=== PATIENT | female | born 1960 | race Caucasian/White ===

== ENCOUNTER 2024-01-29 06:34 | Inpatient (IN) | payer BC, OTHER ==
[2024-01-29] VITALS (8 sets, daily range): BP systolic 92–151; BP diastolic 49–97; PULSE 70–137; RESP 12–20; TEMP 97.6–97.7; O2SAT 94–99
[~2024-01-29] VITALS: Ht 165.1 cm; Wt 78.0 kg
[~2024-01-29 06:34] MED LIST: CLON0.2T PO; UMEC1AER PO
[2024-01-29 07:32] LABS: Alanine Aminotransferase 15 U/L (7-40); Albumin 4.6 g/dL (3.2-4.8); Alkaline Phosphatase 82 U/L (46-116); Anion Gap 12 (5-15); Aspartate Aminotransferase 14 U/L (13-40); BUN/Creatinine Ratio 15.1 (10.0-20.0); Blood Urea Nitrogen 14 mg/dL (9-23); Calcium 9.8 mg/dL (8.7-10.4); Carbon Dioxide 21 mmol/L (20-31); Chloride 109 mmol/L (98-107); Glucose 139 mg/dL (74-106); Potassium 4.3 mmol/L (3.5-5.1); Sodium 142 mmol/L (136-145)
[2024-01-29 07:33] LABS: Bilirubin, Total 0.8 mg/dL (0.2-1.0); Total Protein 7.2 g/dL (5.7-8.2)
[2024-01-29 07:40] LABS: Basophils # (auto) 0.1 10 ^3/uL (0-0.2); Basophils % (auto) 0.6 % (0.0-2.0); Eosinophils # (auto) 0.1 10 ^3/uL (0-0.8); Eosinophils % (auto) 0.8 % (0.0-7.0); Hematocrit 49.9 % (36.0-46.0); Hemoglobin 16.7 g/dL (12.2-16.2); Lymphocytes # (auto) 3.5 10 ^3/uL (0.4-5.4); Lymphocytes % (auto) 31.7 % (10.0-50.0); Mean Corpuscular Hgb Conc. 33.5 g/dL (32.0-36.0); Mean Corpuscular Volume 92.4 fL (80.0-100.0); Monocytes # (auto) 0.9 10 ^3/uL (0-1.3); Monocytes % (auto) 8.2 % (0.0-12.0); Neutrophils # (auto) 6.5 10 ^3/uL (1.6-8.6); Neutrophils % (auto) 58.7 % (37.0-80.0); Nucleated Red Blood Cells % 0.1 %; Platelet Count (auto) 404 10^3/uL (140-450); Red Cell Distribution Width 13.9 % (11.8-14.3); White Blood Cell 11.1 10^3/uL (4.4-10.8)
[2024-01-29] MEDS: ONDANSETRON HCL 4 MG/2 ML VIAL IV ONE (08:11)
[2024-01-29] MEDS: SODIUM CHLORIDE 0.9% 1,000 ML IV ONE (08:36)
[2024-01-29] MEDS: METOPROLOL TARTRATE 1MG/1ML-5ML VIAL IV ONE ×2 (09:09→09:52)
[2024-01-29] MEDS ORDERED: METO-159 PO (13:29)
[2024-01-29] MEDS: METOPROLOL TARTRATE 50 MG TAB PO ONE (13:29)
[2024-01-29] MEDS ORDERED: HYOS0.1293 PO (13:29)
[2024-01-29] MEDS ORDERED: LOSA-534 PO (13:29)
[2024-01-29] MEDS ORDERED: NITROGLYCERIN 0.4 MG SL TAB SL PRN (13:30)
[2024-01-29] MEDS ORDERED: ACETAMINOPHEN 325 MG TAB PO PRN (13:30)
[2024-01-29] MEDS ORDERED: HYDROcodone-ACET 5/325MG TAB PO PRN (13:30)
[2024-01-29] MEDS ORDERED: DOCUSATE SOD 100 MG CAP PO PRN (13:30)
[2024-01-29] MEDS: ASPirin 81 mg TAB PO ONE (13:30)
[2024-01-29] MEDS ORDERED: PRAV20TA3 PO (13:31)
[2024-01-29] MEDS ORDERED: ALBU1AER4 IN (13:32)
[2024-01-29] MEDS ORDERED: ALBUTEROL SULF 2.5 MG/0.5ML(0.5%) NEB SOLN NEB PRN ×2 (13:45→17:15)
[2024-01-29] MEDS ORDERED: HYOSCYAMINE SULF 0.125 MG ODT TAB PO PRN (13:45)
[2024-01-29] MEDS: SODIUM CHLOR 0.9% PF (SALINE LOCK) 10ML VIAL/SYR IV SCH (14:00)
[2024-01-29 14:10] LABS: Urine Bacteria None Seen /hpf (None Seen)
[2024-01-29 14:26] LABS: Urine Blood Negative /uL (Negative); Urine Clarity Clear (Clear); Urine Color Light-Yellow (Yellow); Urine Protein, UAD 1+ (Negative); Urine Specific Gravity 1.013 (1.001-1.035); Urine Urobilinogen Normal (Negative); Urine WBC 3 /hpf (0 - 5); Urine pH 5.5 (5.0-9.0)
[2024-01-29 16:10] LABS: Amphetamine Screen, Urine Neg (NEGATIVE)
[2024-01-29 16:11] LABS: Benzodiazephine Screen, Urine Neg (NEGATIVE)
[2024-01-29 16:12] LABS: Barbiturate Scree,Urine Neg (NEGATIVE); Cannabinoid Screen, Urine Neg (NEGATIVE); Cocaine Screen, Urine Neg (NEGATIVE); Opiate Scree,Urine Neg (NEGATIVE)
[2024-01-29] MEDS: ADENOSINE 6 MG/2 ML INJ IV ONE ×3 (16:48→16:54)
[2024-01-29 16:55] LABS: Phencyclidine Screen, Urine Neg (NEGATIVE)
[2024-01-29] MEDS: hydrALAZINE HCL 20 MG/ML VL ONE (17:26)
[2024-01-29] MEDS: hydrALAZINE HCL 20 MG/ML VL IV ONE (17:26)
[2024-01-29] MEDS: LOSARTAN POTASSIUM 50 MG TAB PO ONE (17:37)
[2024-01-29] MEDS ORDERED: hydrALAZINE HCL 20 MG/ML VL IV PRN ×2 (17:45→19:00)
[2024-01-29] MEDS: cloNIDine HCL 0.1 MG TAB PO ONE (18:14)
[2024-01-29] MEDS: hydroCHLOROthiazide 25 MG TAB PO ONE (18:15)
[2024-01-29] MEDS: MORPHINE SULFATE INJ 2 MG/ml SYRG IV PRN (18:20)
[2024-01-29] MEDS: ONDANSETRON HCL 4 MG/2 ML VIAL IV PRN (18:20)
[2024-01-29] MEDS: LEVALBUTEROL HCL 1.25 MG/3 ML NEB NEB SCH (19:19)
[2024-01-29] MEDS: IPRATROPIUM BROM 0.5 MG/2.5ML INH SOL NEB PRN (19:19)
[2024-01-29] MEDS ORDERED: METOPROLOL TARTRATE 50 MG TAB PO SCH (22:00)
[2024-01-29] MEDS: METOPROLOL SUCCINATE XL 50 MG TAB PO SCH (22:00)
[2024-01-29] MEDS: PRAVASTATIN SODIUM 20 MG TAB PO SCH (22:36)
[2024-01-30] VITALS (14 sets, daily range): BP systolic 91–162; BP diastolic 41–78; PULSE 71–87; RESP 18–20; TEMP 97–97.9; O2SAT 92–98
[2024-01-30] MEDS ORDERED: INFLUENZA TRIVALENT 2024-2025 0.5 ML INJ IM ONE (03:00)
[2024-01-30] MEDS ORDERED: ASPI-543 PO (03:03)
[2024-01-30] MEDS ORDERED: POTA-36 PO (03:04)
[2024-01-30] MEDS ORDERED: MONT-8 PO (03:05)
[2024-01-30] MEDS ORDERED: CLON0.2T PO (03:08)
[2024-01-30] MEDS ORDERED: IBUP1TAB4 PO (03:08)
[2024-01-30] MEDS ORDERED: ALBU108A5 IN (03:09)
[2024-01-30] MEDS ORDERED: HYDR12.59 PO (03:10)
[2024-01-30 05:20] LABS: Basophils # (auto) 0 10 ^3/uL (0-0.2); Basophils % (auto) 0.5 % (0.0-2.0); Eosinophils # (auto) 0.1 10 ^3/uL (0-0.8); Eosinophils % (auto) 0.8 % (0.0-7.0); Hematocrit 41.4 % (36.0-46.0); Hemoglobin 14.1 g/dL (12.2-16.2); Lymphocytes # (auto) 2.8 10 ^3/uL (0.4-5.4); Lymphocytes % (auto) 34.6 % (10.0-50.0); Mean Corpuscular Hemoglobin 31.4 pg (28.0-32.0); Mean Corpuscular Volume 92.3 fL (80.0-100.0); Monocytes # (auto) 0.7 10 ^3/uL (0-1.3); Monocytes % (auto) 8.2 % (0.0-12.0); Neutrophils # (auto) 4.5 10 ^3/uL (1.6-8.6); Neutrophils % (auto) 55.9 % (37.0-80.0); Platelet Count (auto) 276 10^3/uL (140-450); Red Blood Cells 4.49 10^6/uL (4.0-5.20); Red Cell Distribution Width 14.4 % (11.8-14.3); White Blood Cell 8.1 10^3/uL (4.4-10.8)
[2024-01-30 05:26] LABS: Alanine Aminotransferase 13 U/L (7-40); Alkaline Phosphatase 61 U/L (46-116); Anion Gap 8 (5-15); BUN/Creatinine Ratio 20.9 (10.0-20.0); Blood Urea Nitrogen 18 mg/dL (9-23); Calcium 9.2 mg/dL (8.7-10.4); Carbon Dioxide 25 mmol/L (20-31); Chloride 107 mmol/L (98-107); Glucose 102 mg/dL (74-106); Potassium 3.8 mmol/L (3.5-5.1); Sodium 140 mmol/L (136-145)
[2024-01-30 05:27] LABS: Aspartate Aminotransferase 15 U/L (13-40); Bilirubin, Total 1.1 mg/dL (0.2-1.0); Total Protein 6.1 g/dL (5.7-8.2)
[2024-01-30] MEDS: ASPirin 81 mg TAB PO SCH (09:53)
[2024-01-30] MEDS: hydroCHLOROthiazide 25 MG TAB PO SCH (09:54)
[2024-01-30] MEDS ORDERED: cloNIDine HCL 0.1 MG TAB PO SCH (10:00)
[2024-01-30] MEDS: LOSARTAN POTASSIUM 50 MG TAB PO SCH (10:00)
[2024-01-30] MEDS: LOSARTAN POTASSIUM 50 MG TAB PO ONE ×2 (14:11→16:50)
[2024-01-30] MEDS: cloNIDine HCL 0.1 MG TAB PO ONE (18:39)
[2024-01-31] VITALS (7 sets, daily range): BP systolic 158–169; BP diastolic 71–82; PULSE 69–84; RESP 16–18; TEMP 97.4–98.9; O2SAT 94–97
[2024-01-31 07:28] LABS: Calcium 9.9 mg/dL (8.7-10.4); Chloride 106 mmol/L (98-107); Potassium 3.7 mmol/L (3.5-5.1); Sodium 141 mmol/L (136-145)
[2024-01-31 07:29] LABS: Anion Gap 9 (5-15); Carbon Dioxide 26 mmol/L (20-31)
[2024-01-31 07:34] LABS: Blood Urea Nitrogen 15 mg/dL (9-23); Glucose 105 mg/dL (74-106)
[2024-01-31] MEDS: hydroCHLOROthiazide 25 MG TAB PO SCH (09:19)
[2024-01-31] MEDS: LOSARTAN POTASSIUM 50 MG TAB PO SCH (09:20)
[2024-01-31] MEDS ORDERED: METO1TAB9 PO (15:46)
[2024-01-31] MEDS ORDERED: CLON0.1T PO (15:46)
[2024-01-31] MEDS ORDERED: HYDR25TA5 PO (15:46)
[2024-01-31] MEDS ORDERED: LOSA-535 PO (15:46)
== END 2024-01-31 17:45 | disposition home or self-care (01) | DRG 309 ==
LOC: EDBD 06:34 → ER 06:34 → TELE 13:28 → TELE-WESTW 21:36
PROVIDERS: ADMIT Nurse Practitioner Family; ATTEND Student in an Organized Health Care Education/Training Program
PROC: 5A2204Z Restoration of Cardiac Rhythm, Single (ICD-10-PCS; principal; 2024-01-29)
DX: I47.10 Supraventricular tachycardia, unspecified (principal); I20.0 Unstable angina; J44.9 Chronic obstructive pulmonary disease, unspecified; E78.5 Hyperlipidemia, unspecified; J43.8 Other emphysema; R73.03 Prediabetes; I16.0 Hypertensive urgency; I34.1 Nonrheumatic mitral (valve) prolapse; Z90.710 Acquired absence of both cervix and uterus; Z87.891 Personal history of nicotine dependence; Z82.3 Family history of stroke
CPT/HCPCS: 36415; 71045; 80048; 80053; 80307; 81001; 83036; 83835; 83880; 84443; 84484; 85025; 93005; 93306; 94640; 99291; G0378; J0153; J2405

== ENCOUNTER → 2024-04-18 | Outpatient (CLI) | payer BC, OTHER ==
[~2024-04-18] VITALS: Ht 160 cm; Wt 77.1 kg
[~2024-04-18] MED LIST changes: +ALBU1AER4 IN; +ASPI-543 PO; +CLON0.1T PO; +HYDR25TA5 PO; +HYOS0.1293 PO; +IBUP1TAB4 PO; +LOSA-535 PO; +METO1TAB9 PO; +MONT-8 PO; +POTA-36 PO; +PRAV20TA3 PO
--- NOTE | 2024-04-18 09:55 | DVHCARD ---
Cardiology Stress Test [place] Treadmill Stress Test [place] Referring MD: MD Navid Protocol: Joseph (with cardiolite) Reason for referral: Other (Abnormal ECG) Target heart Rate:@85%: 132 Percent MPHR: 156 METS: 7.0 Resting Heart rate: 72 Resting Blood Pressure: 172/80 Exercise Heart Rate: 156 Exercise Blood Pressure: 172/80 Reason for Termination of Test: Shortness of breath Baseline EKG: NSR Stress EKG: Sinus tachycardia Functional Capacity: Mod. Decreased Heart Rate Response: Adequate Blood Pressure Response: Hypertensive Clinical response: Non-ischemic Arrhythmia?: No Cardiolite Injected?: Yes ST-T Changes: Non/Minimal Probability of Inducible Ische: Perfusion result pending Comments: Post-stress test ECG: ST-segment depression to inferolateral leads Date of Service: Apr 18, 2024 Billing Provider: TYRESE MADDEN MD Cardiology Common Codes: PROCEDURE ONLY Treadmill W/Cardiolite Nuclear: [id number], INTERP, RPT [employer] Apr 18, 2024 09:55
--- NOTE | 2024-04-18 12:45 | DVHSR ---
APPROVED REPORT Exam: Nuclear Stress Test BMI: 0 Stress Test Details HR Max Heart Rate (APMHR): 156.446290 bpm Target HR (85% APMHR): 132.542477 bpm BP ECG Stress ECG Conclusion Resting images shows near homogeneous uptake of radioactive tracer throughout the myocardium without evidence of myocardial infarction. Stress images shows near homogeneous uptake of radioactive tracer throughout the myocardium without e vidence of myocardial ischemia. Well-preserved left ventricular systolic function at 60%. Impression: Negative stress test for ischemia, low risk study. NM EXAM: Myocardial Perfusion REST/STRESS Imaging Protocol: Rest Tc-99m/Stress Tc-99m 1 day Resting Data Rest SPECT myocardial perfusion imaging was performed in supine position 60 minutes following the int ravenous injection of 13.5 mCi of Tc-99m Sestamibi. Time of rest injection: 0800 Time of rest imagin Administration Route: IV Administration Site: Right AC Exercise Stress At peak stress, the patient was injected intravenously with 31.5mCi of Tc-99m Sestamibi. Time of stress injection: 0914 Time of stress imagin Administration Route: IV Administration Site: Right AC Patient continued to exercise for 5.40 minute(s). Gated Stress SPECT was performed 30 minutes after stress injection. Nuclear Conclusion ECG Findings: negative for ischemia Clinical Findings: negative for ischemia Nuclear Findings: negative for ischemia Exercise Capacity: not assessed Left Ventricular Function: normal Risk Study: low Resting images shows near homogeneous uptake of radioactive tracer throughout the myocardium without evidence of myocardial infarction. Stress images shows near homogeneous uptake of radioactive tracer throughout the myocardium without e vidence of myocardial ischemia. Well-preserved left ventricular systolic function at 60%. Impression: Negative stress test for ischemia, low risk study.
== END | disposition home or self-care (01) ==
LOC: XYW 08:13
PROVIDERS: ATTEND Internal Medicine
DX: R94.31 Abnormal electrocardiogram [ECG] [EKG] (principal)
CPT/HCPCS: 78452; 93017; A9500

== ENCOUNTER → 2024-04-18 | Outpatient (CLI) | payer BC ==
[2024-04-20 19:06] LABS: Free Testosterone(Direct) 0.8 pg/mL (0.0-4.2)
== END | disposition home or self-care (01) ==
LOC: LAB 11:15
PROVIDERS: ATTEND Internal Medicine Endocrinology, Diabetes & Metabolism
DX: C74.00 Malignant neoplasm of cortex of unspecified adrenal gland (principal)
CPT/HCPCS: 84402; 84403

== ENCOUNTER → 2024-05-20 | Outpatient (CLI) | payer BC ==
[2024-05-20 07:07] LABS: Alanine Aminotransferase 13 U/L (7-40); Albumin 4.7 g/dL (3.2-4.8); Alkaline Phosphatase 78 U/L (46-116); Anion Gap 6 (5-15); BUN/Creatinine Ratio 17.6 (10.0-20.0); Bilirubin, Total 0.7 mg/dL (0.2-1.0); Blood Urea Nitrogen 18 mg/dL (9-23); Calcium 9.8 mg/dL (8.7-10.4); Carbon Dioxide 30 mmol/L (20-31); Chloride 105 mmol/L (98-107); Cholesterol 176 mg/dL (< 200); HDL Cholesterol 46 mg/dL (40-59); Potassium 4.1 mmol/L (3.5-5.1); Sodium 141 mmol/L (136-145)
[2024-05-20 07:15] LABS: Aspartate Aminotransferase 12 U/L (13-40); Glucose 115 mg/dL (74-106); LDL Cholesterol 112 mg/dL (< 100); Triglycerides 229 mg/dL (< 150)
== END | disposition home or self-care (01) ==
LOC: LAB 06:07
PROVIDERS: ATTEND Licensed Practical Nurse
DX: I10 Essential (primary) hypertension (principal); I25.9 Chronic ischemic heart disease, unspecified; E27.8 Other specified disorders of adrenal gland; R73.03 Prediabetes; R94.39 Abnormal result of other cardiovascular function study
CPT/HCPCS: 36415; 80053; 80061; 82306; 83036

== ENCOUNTER 2024-10-08 07:21 | Day surgery (SDC) | payer BC, OTHER ==
[2024-10-07 10:35] LABS: Basophils # (auto) 0.1 10 ^3/uL (0-0.2); Basophils % (auto) 0.7 % (0.0-2.0); Eosinophils # (auto) 0.1 10 ^3/uL (0-0.8); Eosinophils % (auto) 1.2 % (0.0-7.0); Hematocrit 43.2 % (36.0-46.0); Hemoglobin 14.6 g/dL (12.2-16.2); Lymphocytes # (auto) 2.3 10 ^3/uL (0.4-5.4); Lymphocytes % (auto) 31.2 % (10.0-50.0); Mean Corpuscular Hemoglobin 30.8 pg (28.0-32.0); Mean Corpuscular Hgb Conc. 33.8 g/dL (32.0-36.0); Mean Corpuscular Volume 91.1 fL (80.0-100.0); Monocytes # (auto) 0.7 10 ^3/uL (0-1.3); Monocytes % (auto) 9.3 % (0.0-12.0); Neutrophils # (auto) 4.3 10 ^3/uL (1.6-8.6); Neutrophils % (auto) 57.6 % (37.0-80.0); Nucleated Red Blood Cells % 0.1 %; Platelet Count (auto) 300 10^3/uL (140-450); Red Blood Cells 4.74 10^6/uL (4.0-5.20); Red Cell Distribution Width 14.4 % (11.8-14.3); White Blood Cell 7.4 10^3/uL (4.4-10.8)
[2024-10-07 10:49] LABS: INR 0.96 (0.9-1.15); Partial Thromboplastin Time 27.3 SEC (24.5-34.5); Prothrombin Time 10.2 sec (9.3-11.8)
[2024-10-07 11:14] LABS: Alanine Aminotransferase 18 U/L (7-40); Alkaline Phosphatase 68 U/L (46-116); Anion Gap 10 (5-15); Aspartate Aminotransferase 17 U/L (<34); BUN/Creatinine Ratio 17.9 (10.0-20.0); Blood Urea Nitrogen 15 mg/dL (9-23); Calcium 10.2 mg/dL (8.7-10.4); Carbon Dioxide 29 mmol/L (20-31); Chloride 104 mmol/L (98-107); Glucose 100 mg/dL (74-106); Potassium 3.9 mmol/L (3.5-5.1); Sodium 143 mmol/L (136-145); Total Protein 7.2 g/dL (5.7-8.2)
[2024-10-07 11:15] LABS: Albumin 4.8 g/dL (3.2-4.8)
[~2024-10-08] VITALS: Ht 160 cm; Wt 77.1 kg
[~2024-10-08 07:21] MED LIST changes: -ASPI-543 PO; +ASPI1TAB19 PO; -CLON0.2T PO; +FLEC1TAB PO; -LOSA-535 PO; -MONT-8 PO; +OMEGCAP2 PO; -UMEC1AER PO
[2024-10-08] MEDS: ANGIOMAX 250 MG VIAL IV ONE (11:53)
[2024-10-08] MEDS: HEPARIN SODIUM (PORCINE) 5000 UNITS/ML 1ML VIAL ONE (11:53)
[2024-10-08] MEDS: VERAPAMIL 2.5MG/ML INJ 2ML VIAL IV ONE (11:53)
[2024-10-08] MEDS: SODIUM CHL 0.9% 0 ML ONE (11:54)
[2024-10-08] MEDS: LIDOCAINE 2%HCL (LOCAL ANESTH.) INJ 20ML MDV ONE (11:54)
[2024-10-08] MEDS: MIDAZOLAM HCL 2MG/2ML 2ml VIAL (1mg/ml) ONE (11:54)
[2024-10-08] MEDS: fentaNYL CITRATE 100 MCG/2 ML VL ONE (11:54)
[2024-10-08] MEDS: IODIXANOL 320MG/ML 100ML BTL IV ONE (11:57)
[2024-10-08 12:44] VITALS: BP 154/72; PULSE 69; RESP 12; O2SAT 90
--- NOTE | 2024-10-08 12:51 | DVHOP2 ---
Operative Report - 2 Report Details Date: 10/08/24 Preop Diagnosis: CAD Postop Diagnosis: Normal coronaries Surgeon: Marline Shoemaker MD Anesthesiologist: Conscious sedation Anesthesia: Mac, Local Consent: The patient was informed of the risks and benefits of the procedure. These include but are not limited to complications of anesthesia, postoperative infection, incomplete relief of symptoms, recurrence of symptoms, damage to blood vessels, nerves and tendons, deep venous thrombosis, pulmonary embolism and possible need for repeat surgery in the future. Complications: No complications Findings: Normal coronaries Indications for Surgery: Chest pain. Abnormal stress test. Name of Procedure Performed Left heart catheterization. Bilateral cine coronary angiography. Left ventriculography. Procedure Details Procedure Details: Prior local anesthesia with 2% lidocaine to the right wrist and full informed consent obtained the patient was prepped and draped in usual fashion followed by placement of a six Swedish sheath into the radial artery through which six Swedish Cari catheters were used to cannulate both right and left coronary ostia. A multipurpose catheter was used for ventriculography. No complications Hemodynamics: Aortic blood pressure was 110/70 end-diastolic pressure was 20. There was no gradient across the aortic valve on pullback Coronary anatomy: The RCA is a large vessel. It is normal in its proximal mid and distal segments. It is dominant. PDA and posterolateral branches are normal. Left main is large and normal. The circumflex is non-existent. The left anterior descending coronary artery is a large vessel it is normal in its proximal mid and distal segments. The diagonals are free of significant disease. Ventriculography in the REICH projection shows an EF of 70%. Impression: Normal left ventricular end-diastolic pressure at rest. Normal ejection fraction. Patent left main LAD. Dominant right coronary artery. Circumflex is non-existent. Recommendations: Medical therapy is warranted. Risk factor modification to continue. Condition Good Disposition Home Date of Service: Oct 08, 2024 Billing Provider: MARLINE SHOEMAKER Sr., MD Cardiology Common Codes: 48541-[id number] INP/OBS CARE (High) Cardiology Procedure Codes: 13642-DCLE HEART CATH W/INTRA INJ MARLINE SHOEMAKER Sr., MD Oct 08, 2024 12:51
[2024-10-08 13:00] VITALS: BP 169/103; PULSE 64; RESP 12; O2SAT 98
[2024-10-08] MEDS ORDERED: LIDOCAINE 2%HCL (LOCAL ANESTH.) INJ 20ML MDV ONE (13:02)
[2024-10-08 13:15] VITALS: BP 149/75; PULSE 62; RESP 12; O2SAT 96
[2024-10-08 13:30] VITALS: PULSE 64; RESP 17; O2SAT 92
[2024-10-08 13:45] VITALS: BP 118/56; PULSE 60; RESP 13; O2SAT 92
[2024-10-08 14:38] VITALS: BP 125/56; PULSE 54; RESP 13; O2SAT 92
== END 2024-10-08 14:54 | disposition home or self-care (01) ==
LOC: CATH 07:21
PROVIDERS: ATTEND Internal Medicine
DX: R94.39 Abnormal result of other cardiovascular function study (principal); J43.9 Emphysema, unspecified; Z91.030 Bee allergy status; Z82.49 Family history of ischemic heart disease and other diseases of the circulatory system; Z79.82 Long term (current) use of aspirin; Z79.899 Other long term (current) drug therapy; Z87.891 Personal history of nicotine dependence
CPT/HCPCS: 36415; 80053; 85025; 85610; 85730; 93458; C1894; J1644; J2250; J3010; Q9967; 99152

== ENCOUNTER 2025-01-05 06:24 | Outpatient (CLI) | payer OTHER ==
[~2025-01-05 06:24] MED LIST changes: +DIPH25CA66 PO; +NIFE1TAB30 PO
[2025-01-05 07:24] LABS: Hematocrit 43.4 % (36.0-46.0); Hemoglobin 14.5 g/dL (12.2-16.2); Mean Corpuscular Hemoglobin 30.4 pg (28.0-32.0); Mean Corpuscular Volume 91.1 fL (80.0-100.0); Nucleated Red Blood Cells % 0.1 %
[2025-01-05 08:05] LABS: Alanine Aminotransferase 16 U/L (7-40); Albumin 4.2 g/dL (3.2-4.8); Alkaline Phosphatase 68 U/L (46-116); Anion Gap 10 (5-15); BUN/Creatinine Ratio 13.8 (10.0-20.0); Blood Urea Nitrogen 13 mg/dL (9-23); Calcium 9.0 mg/dL (8.7-10.4); Carbon Dioxide 28 mmol/L (20-31); Chloride 105 mmol/L (98-107); Cholesterol 182 mg/dL (< 200); HDL Cholesterol 46 mg/dL (40-59); Potassium 4.0 mmol/L (3.5-5.1); Sodium 143 mmol/L (136-145); Total Protein 6.7 g/dL (5.7-8.2)
[2025-01-05 08:06] LABS: Bilirubin, Total 0.7 mg/dL (0.2-1.0); Glucose 106 mg/dL (74-106); Triglycerides 199 mg/dL (< 150)
== END 2025-01-05 17:00 | disposition home or self-care (01) ==
LOC: LAB 06:24
PROVIDERS: ATTEND Licensed Practical Nurse
DX: I10 Essential (primary) hypertension (principal); E55.9 Vitamin D deficiency, unspecified; R73.03 Prediabetes; R94.31 Abnormal electrocardiogram [ECG] [EKG]; Z13.1 Encounter for screening for diabetes mellitus
CPT/HCPCS: 36415; 80053; 80061; 82043; 82306; 83036; 85025

== ENCOUNTER 2025-01-06 10:30 | Day surgery (SDC) | payer OTHER ==
[2025-01-01 14:31] LABS: Hematocrit 44.7 % (36.0-46.0); Hemoglobin 15.2 g/dL (12.2-16.2); Mean Corpuscular Hemoglobin 31.0 pg (28.0-32.0); Mean Corpuscular Volume 91.1 fL (80.0-100.0); Nucleated Red Blood Cells % 0.1 %
[2025-01-01 14:54] LABS: INR 0.97 (0.9-1.15); Partial Thromboplastin Time 27.1 SEC (24.5-34.5); Prothrombin Time 10.3 sec (9.3-11.8)
[2025-01-01 15:08] LABS: Alanine Aminotransferase 14 U/L (7-40); Albumin 4.5 g/dL (3.2-4.8); Alkaline Phosphatase 72 U/L (46-116); Anion Gap 9 (5-15); BUN/Creatinine Ratio 14.0 (10.0-20.0); Blood Urea Nitrogen 15 mg/dL (9-23); Calcium 9.6 mg/dL (8.7-10.4); Carbon Dioxide 29 mmol/L (20-31); Chloride 104 mmol/L (98-107); Potassium 3.7 mmol/L (3.5-5.1); Sodium 142 mmol/L (136-145); Total Protein 7.1 g/dL (5.7-8.2)
[2025-01-01 15:09] LABS: Bilirubin, Total 0.6 mg/dL (0.2-1.0)
[2025-01-01 15:13] LABS: Glucose 110 mg/dL (74-106)
[~2025-01-06] VITALS: Ht 160 cm; Wt 77.1 kg
[2025-01-06] MEDS ORDERED: SODIUM CHLORIDE LOCK 10 ML ONE (11:45)
[2025-01-06 13:20] VITALS: PULSE 60; RESP 14; O2SAT 100
[2025-01-06] MEDS: diphenhdrAMINE HCL 50 MG/1 ML VL ONE (13:28)
[2025-01-06] MEDS: fentaNYL CITRATE 100 MCG/2 ML VL ONE (13:28)
[2025-01-06] MEDS: MIDAZOLAM HCL 5 MG/ML-1ML VIAL ONE (13:28)
[2025-01-06 13:50] VITALS: PULSE 58; RESP 15; TEMP 97.3; O2SAT 100
--- NOTE | 2025-01-06 13:50 | DVHOP2 ---
Operative Report DATE OF OPERATION: 01/06/25 PROCEDURE: Colonoscopy with cold biopsy polypectomy. PREOPERATIVE INDICATION: The patient is a 64 -year-old female undergoing colonoscopy for colon cancer screening POSTOPERATIVE DIAGNOSES: 1. 2 mm benign-appearing polyp seen in the hepatic flexure and was removed via cold biopsy forceps 2. 2 mm benign-appearing hyperplastic type rectal polyp was seen and removed by cold biopsy forceps and the specimens were retrieved 3. Ldby-fd-framzobd scattered diverticular disease most prominent in the sigmoid with sigmoid muscular hypertrophy 4. Trace internal hemorrhoids otherwise completely normal colonoscopy examination up to the cecum PROCEDURE PERFORMED BY: Mona Mccollum M.D. SCOPE: Olympus videocolonoscope. ASA CLASS: 2. PREOPERATIVE MEDICATIONS: Versed 4 mg, Fentanyl 100 mcg, Benadryl 50 mg PROCEDURE IN DETAIL: After obtaining an informed consent, the patient was placed on left lateral decubitus position. She was then sedated with the above medications. A rectal examination was performed that was normal. The colonoscope was then passed through the anus into the rectosigmoid and through the descending, transverse, and ascending colon up to the cecum with visualization of the appendiceal orifice, base of the cecum and the ileocecal valve. The colonoscope was then withdrawn. No masses or colitis were seen Patient had a 2 mm benign-appearing polyp seen in the hepatic flexure this could have been a suction polyp, this was removed by cold biopsy forceps The patient had moderate scattered diverticular disease most prominent in the sigmoid with sigmoid muscular hypertrophy In the rectum there was a 2 mm benign-appearing hyperplastic type polyp seen on retroflexion which was removed completely via cold biopsy forceps Patient had trace internal hemorrhoids. The patient tolerated the procedure well without difficulty. WITHDRAWAL TIME: 7 minutes QUALITY OF THE PREP: [place] Bowel Prep score: 9. COMPLICATIONS : None SPECIMENS: Hepatic flexure polyp Rectal polyp DISPOSITION: Stable D/C to home PLAN: 1. Repeat colonoscopy base on biopsy result likely in 7-10 years 2. Resume GI soft diet advance as tolerated 3. Increase fluid and fiber intake 4. Outpatient follow up with me in 4-6 weeks to review results and discuss further management MONA MCCOLLUM MD Jan 06, 2025 13:50
[2025-01-06 14:45] VITALS: BP 174/63; PULSE 56; RESP 15; O2SAT 95
== END 2025-01-06 15:00 | disposition home or self-care (01) ==
LOC: GI 10:30
PROVIDERS: ATTEND Internal Medicine Gastroenterology
DX: K59.09 Other constipation (principal); K63.5 Polyp of colon; K62.1 Rectal polyp; K57.30 Diverticulosis of large intestine without perforation or abscess without bleeding; K64.8 Other hemorrhoids; I10 Essential (primary) hypertension; J43.9 Emphysema, unspecified; Z91.030 Bee allergy status; Z87.891 Personal history of nicotine dependence; Z82.49 Family history of ischemic heart disease and other diseases of the circulatory system; Z79.82 Long term (current) use of aspirin; Z79.899 Other long term (current) drug therapy; Z79.01 Long term (current) use of anticoagulants
CPT/HCPCS: 36415; 45380; 80053; 85025; 85610; 85730; 88305; J1200; J2250; J3010; J7030; 99152

== ENCOUNTER → 2025-04-03 | Outpatient (CLI) | payer OTHER | END | disposition home or self-care (01) | LOC: LAB 11:44 | PROVIDERS: ATTEND Dermatology | DX: Z01.812 Encounter for preprocedural laboratory examination (principal) ==